=== PATIENT | female | born 1960 | race Caucasian/White ===

== ENCOUNTER 2022-07-06 11:06 | Emergency (ER) | payer MEDICAID, OTHER ==
[2022-07-06] MEDS ORDERED: methylPREDNISolone Sodium Succinate 40 MG/1 ML SDV IM ONE (12:09)
[2022-07-06] MEDS ORDERED: Colchicine 0.6 MG Tab PO SCH (12:15)
[2022-07-06] MEDS ORDERED: methylPREDNISolone Sodium Succinate 40 MG/1 ML SDV ONE (12:25)
== END 2022-07-06 13:15 | disposition home or self-care (01) ==
LOC: LB.ED 11:06
DX: M10.9 Gout, unspecified (principal); I10 Essential (primary) hypertension; I25.2 Old myocardial infarction; Z88.2 Allergy status to sulfonamides; Z87.891 Personal history of nicotine dependence
CPT/HCPCS: 36415; 73660-T5; 80048; 84550; 85027; 86140; 96372; 99283; A9270-GY; J2920